=== PATIENT | female | born 1980 | race Caucasian/White ===

== ENCOUNTER → 2020-12-24 | Outpatient (CLI) | payer OTHER | END | disposition home or self-care (01) | LOC: MSR 10:04 | PROVIDERS: ATTEND Chiropractor | DX: M77.32 Calcaneal spur, left foot (principal); M77.31 Calcaneal spur, right foot; E03.9 Hypothyroidism, unspecified; R06.02 Shortness of breath; M13.80 Other specified arthritis, unspecified site | CPT/HCPCS: 70330; 71046; 73521; 86430; 36415-L1; 36415-TC ==